=== PATIENT | male | born 1945 | race Caucasian/White ===

== ENCOUNTER → 2016-05-24 | Day surgery (SDC) | payer MEDICARE, OTHER ==
[~2016-05-24] MED LIST: ASPI325T11 PO; FENTANYL PF 100 MCG/2 ML VIAL. IV PRN; HYDROMORPHONE 2 MG/ML VIAL. IV PRN; IV RINGERS,LACTATED 1000ML 1,000 ML IV SCH; LIDOCAINE 1% 1 ML SYRINGE. ID PRN; LIDOCAINE 2% PF Vial for OR 5 ML VIAL. ONE; MORPHINE SULFATE 2 MG/ML DISP.SYRIN. IV PRN; ONDANSETRON PF 4 MG/2 ML VIAL. IV PRN; PROCHLORPERAZINE 10 MG/2 ML VIAL. IV PRN; PROPOFOL 40 ML IV ONE
[2016-05-24 09:55] VITALS: BP 120/70
--- NOTE | 2016-05-27 13:33 | PATHOLOGY ---
PATHOLOGY REPORT * * * * * * * * FINAL DIAGNOSIS: A. Colon biopsies, sigmoid colon polyp: - Tubular adenoma. B. Colon biopsy, cecal polyp: - Tubular adenoma. C. Colon biopsies, cecal polyp: - Tubular adenoma. COMMENT: Sections of the cecal and sigmoid colon biopsies reveal tubular adenomas showing no high-grade dysplasia or evidence of malignancy. Specimen C (cecal polyp) is received in multiple fragments. (JPM:mgomar; d/t: 05/27/16) REPORT ELECTRONICALLY SIGNED BY: Lincoln Ellsworth M.D. DATE/TIME: 05/27/2016 13:32 * * * * * * * * GROSS PATHOLOGY: A. Received in formalin labeled "Alex Pete, colon polyp sigmoid," are two segments of kimble soft tissue measuring 0.8 x 0.6 x 0.2 cm in aggregate dimensions and ranging from 0.4 to 0.6 cm in maximum dimension. The specimen is submitted entirely in cassette A1. B. Received in formalin labeled "Alex Pete, cecal polyp-2," is a segment of kimble soft tissue measuring 0.4 cm in maximum dimension. The specimen is submitted entirely in cassette B1. C. Received in formalin labeled "Alex Pete, cecal polyp-3," are multiple (greater than 10) segments of kimble soft tissue measuring 2.2 x 2.2 x 0.9 cm in aggregate dimensions and ranging from 0.2 to 0.9 cm in maximum dimension. The specimen is submitted entirely in cassette C1 through C3. (CAA; 05/24/2016) INITIAL CPT CODE(S): A; 35765 B; 86654 C; 78185 Professional services performed by [facility] at [address] [address] Technical services performed by [facility] at [address] [place] [address], [facility] [address] [address]. SPECIMEN(S) RECEIVED: A.Colon polyp-sigmoid B.Cecal polyp C.Cecal polyp CLINICAL HISTORY: Dysphagia, colon polyps PATIENT: ALEX PETE /AGE: 205/21/1945 (Age: 71) PATIENT #: [id number] ALT CASE #: SPECIMEN COLLECTION DATE: 05/24/2016 SPECIMEN RECEIVED DATE: 05/24/2016 [facility] - [address] [place] [address] - PHONE: [phone] * * * END OF REPORT * * *
== END | disposition home or self-care (01) ==
LOC: ENDOS 07:59
PROVIDERS: ATTEND Internal Medicine Gastroenterology
DX: K64.0 First degree hemorrhoids (principal); D12.5 Benign neoplasm of sigmoid colon; D12.0 Benign neoplasm of cecum; D17.5 Benign lipomatous neoplasm of intra-abdominal organs; K57.30 Diverticulosis of large intestine without perforation or abscess without bleeding; K22.2 Esophageal obstruction; K29.50 Unspecified chronic gastritis without bleeding; M19.90 Unspecified osteoarthritis, unspecified site
CPT/HCPCS: 43235; 43450; 45385; 88305; J2704